=== PATIENT | male | born 1995 | race Caucasian/White ===

== ENCOUNTER 2017-09-15 22:31 | Emergency (ER) | payer BC, MEDICAID ==
[2017-09-15] MEDS: KETOROLAC 60 MG/2 ML VIAL IVP STA (23:52)
[2017-09-15] MEDS: HYDROmorphone 1 MG/ML SYRINGE IVP STA (23:53)
[2017-09-15] MEDS: LORazepam 2 MG/ML VIAL IVP STA (23:56)
--- NOTE | 2017-09-16 00:07 | XRAY Preliminary Report ---
Exam: XR HIP W/PELVIS 2-3V RT IMPRESSION: 1. No fracture or malalignment. 2. Possible of a coverage of both femoral heads with decreased offset of femoral head and neck. 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 Confirmatory studies can be performed with MRI. [facility] SITE ID: [id number]
--- NOTE | 2017-09-16 00:15 | XRAY Report ---
EXAM: RIGHT HIP AND PELVIS RADIOGRAPHY EXAM DATE: 09/15/2017 11:52 PM. HISTORY: Onset right hip pain this evening, severe. COMPARISONS: None. TECHNIQUE: 1 view of the pelvis and 1 view of the hip. FINDINGS: Bones: No fracture. Decreased offset of the femoral head and neck region bilaterally best seen on the right. Joints: Possible over coverage in both hip joints. No dislocation or significant joint space narrowin g. Soft Tissues: Normal. No soft tissue swelling. IMPRESSION: 1. No fracture or malalignment. 2. Possible over coverage of both femoral heads with decreased offset of femoral head and neck. 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 Confirmatory studies can be performed with MRI. [facility] Referring Provider Line: [phone] SITE ID: [id number]
[2017-09-16] MEDS: SODIUM CHLORIDE 0.9% 1,000 ML IV ONE (01:03)
[2017-09-16] MEDS: HYDROcod/ACET 5/325 Prepack 6 PO STA (01:05)
--- NOTE | 2017-09-16 01:51 | ED Physician Documentation ---
PD HPI LOWER EXT INJURY - Stated complaint Stated Complaint: HIP PX - Chief complaint Chief Complaint: General - History obtained from History obtained from: Patient - History of Present Illness PD HPI LOW EXT INJURY LOCATION: Right, Hip Type of injury: Twist (he reached down to pick out hand carseat and had abrupt onset right hip pain. Had had some pain there intermittently for few days or so. This was abrupt marked apin and felt unable to straighten his hip. He says it felt tight, like it "needed to pop" and felt that it was not in the right place. No fall nor impact.) Where injury occurred: Home Timing - onset: Today Timing - details: Abrupt onset, Still present Worsened by: Moving, Palpating Associated symptoms: No: Weakness, Numbness, Swelling Similar symptoms before: Has not had sx before Recently seen: Not recently seen Review of Systems Constitutional: denies: Fever, Chills Skin: denies: Rash, Lesions Musculoskeletal: denies: Back pain Neurologic: denies: Focal weakness, Numbness PD PAST MEDICAL HISTORY - Past Medical History Past Medical History: Yes Cardiovascular: None Neuro: None Endocrine/Autoimmune: Type 1 diabetes GI: None : None HEENT: None Psych: None Musculoskeletal: Chronic back pain Derm: None - Past Surgical History Past Surgical History: Yes General: Other - Present Medications Home Medications: Ambulatory Orders Medication Instructions Recorded Confirmed HYDROcod/ACETAM 5/325 [[place] 5/325] 1 tab PO Q6H PRN #15 tablet 09/16/17 Ibuprofen [Motrin] 600 mg PO TID #30 tab 09/16/17 - Allergies Allergies/Adverse Reactions: Allergies Allergy/AdvReac Type Severity Reaction Status Date / Time No Known Drug Allergies Allergy Verified 09/15/17 22:39 - Social History Does the pt smoke?: No Smoking Status: Never smoker Does the pt drink ETOH?: No Does the pt have substance abuse?: No - Immunizations Immunizations are current?: Yes - POLST Patient has POLST: No PD ED PE NORMAL - Vitals Vital signs reviewed: Yes - General General: Alert and oriented X 3, Well developed/nourished, Other (singificant pain, increased with any ROM. Holding joint stiffly. ) - Neck Neck: Supple, no meningeal sign, No adenopathy - Cardiac Cardiac: RRR, No murmur - Respiratory Respiratory: Clear bilaterally - Abdomen Abdomen: Normal bowel sounds, Soft, Non tender, Non distended - Back Back: No CVA TTP, No spinal TTP - Derm Derm: Normal color, Warm and dry, No rash - Extremities Extremities: Other (tender lateral and anterior hip. guarded ROM. With him having iV pain meds, I did passive ROM and guarded at first, then got a little looser. No noted clock nor pop, no noted laxity. ) - Neuro Neuro: Alert and oriented X 3, No motor deficit, No sensory deficit, Normal speech Results - Vitals Vitals: Vital Signs - 24 hr 09/15/17 09/16/17 09/16/17 22:36 00:40 01:59 Temperature 36.8 C Heart Rate 81 68 69 Respiratory 18 16 16 Rate Blood Pressure 144/60 H 102/54 L 100/63 O2 Saturation 100 98 98 Oxygen O2 Source Room air PD MEDICAL DECISION MAKING - ED course Complexity details: reviewed results (no fracture nor dislocation. The spacing is tight on both sides suggesting congenital process. Consider MRI per Rad. ), considered differential (given the degree of pain and the feeling of it " needing to pop" and hurting ROM, I would consider labral injury or such. Does not seem like just muscular but could be spasm. He is doing better after meds. Had transient drop in BP after pain meds, improved with IV fluids. ), d/w patient Departure - Departure Disposition: 01 Home, Self Care Clinical Impression: Hip strain Qualifiers: Encounter type: initial encounter Laterality: right Qualified Code(s): S76.011A - Strain of muscle, fascia and tendon of right hip, initial encounter Labral tear of hip joint Qualifiers: Encounter type: initial encounter Laterality: right Qualified Code(s): S73.191A - Other sprain of right hip, initial encounter Condition: Stable Record reviewed to determine appropriate education?: Yes Instructions: ED Sprain Hip Follow-Up: Taina Duenas MD [Primary Care Provider] - Gino Bah MD [Provider Admit Priv/Credential] - Prescriptions: HYDROcod/ACETAM 5/325 [[place] 5/325] 1 tab PO Q6H PRN #15 tablet PRN Reason: Pain Ibuprofen [Motrin] 600 mg PO TID #30 tab Comments: This may be a strain of some of the joint capsule of the hip. However given your symptoms, I would be concern for a injury of the cartilage within the hip, called the labrum. Use crutches to be off the leg and hip. Use ibuprofen 3 times a day and add hydrocodone if needed for pain. Follow-up with orthopedics early this coming week, call Monday for an appointment. Discharge Date/Time: 09/16/17 02:03
[2017-09-16 02:03] VITALS: BP 100/63
== END 2017-09-16 02:03 | disposition home or self-care (01) ==
LOC: ED 22:31
DX: S73.191A Other sprain of right hip, initial encounter (principal); S76.001A Unspecified injury of muscle, fascia and tendon of right hip, initial encounter; X50.9XXA Other and unspecified overexertion or strenuous movements or postures, initial encounter; Y93.89 Activity, other specified; Y92.009 Unspecified place in unspecified non-institutional (private) residence as the place of occurrence of the external cause; E10.9 Type 1 diabetes mellitus without complications
CPT/HCPCS: 96374; 96375; 99283

== ENCOUNTER 2018-04-15 12:48 | Emergency (ER) | payer SELFPAY ==
--- NOTE | 2018-04-15 14:21 | ED Physician Documentation ---
PD HPI BACK PAIN - Stated complaint Stated Complaint: R LEG PX - Chief complaint Chief Complaint: Back Pain - History obtained from History obtained from: Patient - History of Present Illness Timing - onset: How many days ago (few) Timing - duration: Days (few) Timing - details: Gradual onset, Still present (worsening over several days, without numbness nor weakness of legs. Feels pain goes down right posterior leg. No incontinence.) Location: Lower, Right Quality: Pain, Similar to prior episodes Associated symptoms: No: Fever, Weakness, Numbness Review of Systems Constitutional: denies: Fever, Chills, Myalgias Eyes: denies: Decreased vision, Reviewed and negative GI: denies: Abdominal Pain, Nausea, Vomiting, Diarrhea : denies: Dysuria, Frequency, Hesitancy, Unable to Void Skin: denies: Rash, Lesions Neurologic: denies: Focal weakness, Numbness PD PAST MEDICAL HISTORY - Past Medical History Cardiovascular: None Respiratory: None Neuro: None Endocrine/Autoimmune: Type 1 diabetes GI: None : None HEENT: None Psych: None Musculoskeletal: Chronic back pain Derm: None - Past Surgical History Past Surgical History: Yes General: Other - Present Medications Home Medications: Ambulatory Orders Medication Instructions Recorded Confirmed Ibuprofen [Motrin] 600 mg PO TID #30 tab 09/16/17 Dexamethasone [Decadron] 4 mg PO DAILY #5 tablet 04/15/18 HYDROcod/ACETAM 5/325 [[place] 5/325] 1 tab PO Q6H PRN #15 tablet 04/15/18 Methocarbamol [Robaxin] 500 mg PO Q6H PRN #25 tablet 04/15/18 - Allergies Allergies/Adverse Reactions: Allergies Allergy/AdvReac Type Severity Reaction Status Date / Time No Known Drug Allergies Allergy Verified 04/15/18 13:00 - Social History Does the pt smoke?: No Smoking Status: Never smoker Does the pt drink ETOH?: No Does the pt have substance abuse?: No - Immunizations Immunizations are current?: Yes - POLST Patient has POLST: No PD ED PE NORMAL - Vitals Vital signs reviewed: Yes - General General: Alert and oriented X 3, Well developed/nourished, Other (seems guarded on ROM of the low back, mainly right low back.) - Neck Neck: Supple, no meningeal sign, No adenopathy - Cardiac Cardiac: RRR, No murmur - Respiratory Respiratory: Clear bilaterally - Abdomen Abdomen: Soft, Non tender - Male Male : Deferred - Rectal Rectal: Deferred - Back Back: No spinal TTP - Derm Derm: Normal color, Warm and dry, No rash - Extremities Extremities: No tenderness to palpate, Normal ROM s pain, No edema, No calf tenderness / cord - Neuro Neuro: Alert and oriented X 3, No motor deficit, No sensory deficit, Normal speech Results - Vitals Vitals: Vital Signs - 24 hr 04/15/18 04/15/18 12:58 15:28 Temperature 36.6 C 36.6 C Heart Rate 82 67 Respiratory 20 18 Rate Blood Pressure 133/65 H 148/62 H O2 Saturation 100 98 Oxygen O2 Source Room air PD MEDICAL DECISION MAKING - ED course Complexity details: re-evaluated patient (no red flags noted on encounter. ), considered differential (he is tender at right SI joint more than low back. I did trigger injection with Kenalog and Marcaine at point of most tenderness.), d /w patient - Sepsis Event Vital Signs: Vital Signs - 24 hr 04/15/18 04/15/18 12:58 15:28 Temperature 36.6 C 36.6 C Heart Rate 82 67 Respiratory 20 18 Rate Blood Pressure 133/65 H 148/62 H O2 Saturation 100 98 Oxygen O2 Source Room air Departure - Departure Disposition: 01 Home, Self Care Clinical Impression: Low back pain Qualifiers: Chronicity: acute Back pain laterality: right Sciatica presence: with sciatica Sciatica laterality: sciatica of right side Qualified Code(s): M54.41 - Lumbago with sciatica, right side Condition: Stable Record reviewed to determine appropriate education?: Yes Instructions: ED Sciatica Prescriptions: Dexamethasone [Decadron] 4 mg PO DAILY #5 tablet HYDROcod/ACETAM 5/325 [[place] 5/325] 1 tab PO Q6H PRN #15 tablet PRN Reason: Pain Methocarbamol [Robaxin] 500 mg PO Q6H PRN #25 tablet PRN Reason: Spasms Comments: Continue ibuprofen or naproxen 2-3 times a day. Heat in the mornings to help stretch out the low back. Use some ice on the area after work to reduce inflammation. Take a day or 2 off work if you need to to start the improvement. Add Robaxin muscle relaxant if needed for spasms and stiffness. Add Hydrocodone if needed for pain. Recheck if not improved over the next week. Discharge Date/Time: 04/15/18 15:36
[2018-04-15] MEDS ORDERED: TRIAMCINOLONE 40 MG/ML VIAL IM STA (14:48)
[2018-04-15] MEDS ORDERED: HYDROcod/ACETAM 5/325 MG TABLET PO STA (14:48)
[2018-04-15] MEDS ORDERED: METHOCARBAMOL 500 MG TABLET PO STA (14:48)
[2018-04-15 15:28] VITALS: BP 148/62
== END 2018-04-15 15:36 | disposition home or self-care (01) ==
LOC: ED 12:48
DX: M54.41 Lumbago with sciatica, right side (principal); E10.9 Type 1 diabetes mellitus without complications
CPT/HCPCS: 20552; 99283; A9270

== ENCOUNTER 2018-06-19 14:42 | Emergency (ER) | payer MEDICAID ==
[2018-06-19 14:54] VITALS: BP 136/73
--- NOTE | 2018-06-19 16:00 | ED Physician Documentation ---
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 He really does not want to modify his activities.) Review of Systems Constitutional: reports: Reviewed and negative Cardiac: reports: Reviewed and negative Respiratory: reports: Reviewed and negative PD PAST MEDICAL HISTORY - Past Medical History Cardiovascular: None Respiratory: None Neuro: None GI: None : None HEENT: None Psych: None Musculoskeletal: Chronic back pain Derm: None Other Past Medical History: sciatic, herniated disk, spinal stenosis. - Past Surgical History Past Surgical History: Yes General: Other - Present Medications Home Medications: Ambulatory Orders Medication Instructions Recorded Confirmed Aspirin [Germán] 500 mg PO 0800 06/19/18 06/19/18 Ibuprofen [Motrin] 800 mg PO Q8H PRN #30 tablet 06/19/18 - Allergies Allergies/Adverse Reactions: Allergies Allergy/AdvReac Type Severity Reaction Status Date / Time No Known Drug Allergies Allergy Verified 06/19/18 14:49 - Social History Does the pt smoke?: No Smoking Status: Never smoker Does the pt drink ETOH?: No Does the pt have substance abuse?: No - Immunizations Immunizations are current?: Yes - POLST Patient has POLST: No PD ED PE NORMAL - Vitals Vital signs reviewed: Yes - General General: Alert and oriented X 3, No acute distress - Extremities Extremities: Other (Right elbow is full range of motion with mild tenderness over the lateral epicondyle, no swelling or redness.) - Neuro Neuro: Alert and oriented X 3, Normal speech Results - Vitals Vitals: Vital Signs - 24 hr 06/19/18 14:47 Temperature 36.9 C Heart Rate 70 Respiratory 16 Rate Blood Pressure 136/73 H O2 Saturation 100 Oxygen O2 Source Room air Departure - Departure Disposition: 01 Home, Self Care Clinical Impression: Lateral epicondylitis of elbow Qualifiers: Laterality: right Qualified Code(s): M77.11 - Lateral epicondylitis, right elbow Condition: Good Record reviewed to determine appropriate education?: Yes Instructions: ED Epicondylitis Lateral Elbow Prescriptions: Ibuprofen [Motrin] 800 mg PO Q8H PRN #30 tablet PRN Reason: PAIN &/OR FEVER Comments: As discussed get a tennis elbow brace and use as directed. Try to decrease or modify your activities to prevent repetitive motion injuries. Follow-up with your doctor in a week.
== END 2018-06-19 16:07 | disposition home or self-care (01) ==
LOC: ED 14:42
DX: M77.11 Lateral epicondylitis, right elbow (principal)
CPT/HCPCS: 99282; 99283

== ENCOUNTER 2018-07-16 15:37 | Emergency (ER) | payer MEDICAID ==
[2018-07-16 15:48] VITALS: BP 140/68
--- NOTE | 2018-07-16 16:33 | ED Physician Documentation ---
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 Worse with movement, better with rest. Took Aleve x1 without relief. No new mattresses. No recent travel. No fevers. No numbness or tingling. No loss of bowel or bladder control Review of Systems Constitutional: denies: Fever, Chills Ears: denies: Ear pain Nose: denies: Rhinorrhea / runny nose, Congestion Cardiac: denies: Chest pain / pressure Respiratory: denies: Cough, Wheezing GI: denies: Abdominal Pain, Nausea, Vomiting, Diarrhea Skin: denies: Rash Musculoskeletal: denies: Back pain Neurologic: denies: Focal weakness, Numbness, Headache PD PAST MEDICAL HISTORY - Past Medical History Cardiovascular: None Respiratory: None Neuro: None Endocrine/Autoimmune: None GI: None : None HEENT: None Psych: None Musculoskeletal: Chronic back pain Derm: None - Past Surgical History Past Surgical History: Yes General: Other - Present Medications Home Medications: Ambulatory Orders Medication Instructions Recorded Confirmed Aspirin [Germán] 500 mg PO 0800 06/19/18 06/19/18 Ibuprofen [Motrin] 800 mg PO Q8H PRN #30 tablet 06/19/18 Cyclobenzaprine [Flexeril] 10 mg PO TID PRN #20 tablet 07/16/18 Meloxicam [Mobic] 15 mg PO DAILY PRN #20 tablet 07/16/18 - Allergies Allergies/Adverse Reactions: Allergies Allergy/AdvReac Type Severity Reaction Status Date / Time No Known Drug Allergies Allergy Verified 07/16/18 15:48 - Social History Does the pt smoke?: No Smoking Status: Never smoker Does the pt drink ETOH?: No Does the pt have substance abuse?: No - Immunizations Immunizations are current?: Yes - POLST Patient has POLST: No PD ED PE NORMAL - Vitals Vital signs reviewed: Yes - General General: Alert and oriented X 3, No acute distress - HEENT HEENT: Moist mucous membranes - Neck Neck: Supple, no meningeal sign, No bony TTP (No midline tenderness to palpation. No step-off or deformity. 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 No evidence of meningitis. No evidence of cervical spine injury. We will continue supportive care and follow-up with his doctor. Patient counseled regarding signs and symptoms for which I believe and urgent re-evaluation would be necessary. Patient with good understanding of and agreement to plan and is comfortable going home at this time This document was made in part using voice recognition software. While efforts are made to proofread this document, sound alike and grammatical errors may occur. Departure - Departure Disposition: 01 Home, Self Care Clinical Impression: Neck muscle strain Qualifiers: Encounter type: initial encounter Qualified Code(s): S16.1XXA - Strain of muscle, fascia and tendon at neck level, initial encounter Condition: Good Instructions: ED Spasm Neck No Injury Follow-Up: your,doctor in 1 week [Other] Prescriptions: Cyclobenzaprine [Flexeril] 10 mg PO TID PRN #20 tablet PRN Reason: Spasms Meloxicam [Mobic] 15 mg PO DAILY PRN #20 tablet PRN Reason: pain Comments: This should improve over the next few days. Return if you worsen. Follow-up with your doctor for further care. Do not drive or operate heavy machinery while taking the Flexeril. Discharge Date/Time: 07/16/18 16:39
== END 2018-07-16 16:39 | disposition home or self-care (01) ==
LOC: ED 15:37
DX: S16.1XXA Strain of muscle, fascia and tendon at neck level, initial encounter (principal)
CPT/HCPCS: 99283

== ENCOUNTER 2023-08-14 14:37 | Emergency (ER) | payer MEDICAID, OTHER ==
[2023-08-14] MEDS ORDERED: diazePAM 5 MG TABLET PO STA (15:44)
[2023-08-14] MEDS ORDERED: oxyCODONE 5 MG TABLET PO STA (15:44)
[2023-08-14] MEDS ORDERED: MORPHINE 2 MG/ML CARPUJECT IM STA (16:36)
[2023-08-14] MEDS ORDERED: oxyCODONE/ACET 5/325 Prepack 4 PO STA (17:01)
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
[2023-08-14 17:39] VITALS: BP 149/72; O2SAT 97
== END 2023-08-14 17:35 | disposition home or self-care (01) ==
LOC: ED 14:37
DX: M54.50 Low back pain, unspecified (principal)
CPT/HCPCS: 96372; 99283; A9270

== ENCOUNTER 2024-04-25 20:22 | Emergency (ER) | payer SELFPAY ==
[2024-04-25 20:48] VITALS: BP 127/84; O2SAT 99
[2024-04-25 21:00] LABS: RAPID STREP SCREEN Negative (Negative)
[2024-04-25] MEDS: SODIUM CHLORIDE 0.9% 1,000 ML IV ONE (21:40)
[2024-04-25 21:48] LABS: B. PARAPERTUSSIS- RESP PCR PAN NOT DETECTED; B. PERTUSSIS- RESP PCR PANEL NOT DETECTED; C. PNEUMONIAE- RESP PCR PANEL NOT DETECTED; CORONAVIRUS 229E-RESP PCR NOT DETECTED; CORONAVIRUS HKU1-RESP PCR NOT DETECTED; CORONAVIRUS NL63-RESP PCR NOT DETECTED; CORONAVIRUS OC43-RESP PCR NOT DETECTED; HUMAN METAPNEUMOVIRUS NOT DETECTED; INFLUENZA A- RESP PCR PANEL NOT DETECTED; INFLUENZA B - RESP PCR PANEL NOT DETECTED; M. PNEUMONIAE- RESP PCR PANEL NOT DETECTED; PARAINFLUENZA VIRUS 1 NOT DETECTED; PARAINFLUENZA VIRUS 2 NOT DETECTED; PARAINFLUENZA VIRUS 3 NOT DETECTED; PARAINFLUENZA VIRUS 4 NOT DETECTED; RHINOVIRUS/ENTEROVIRUS DETECTED; RSV- RESP PCR PANEL NOT DETECTED; SARS-CoV-2 -RESP PCR PANEL NOT DETECTED
[2024-04-25] MEDS: IBUPROFEN 600 MG TABLET PO STA ×2 (22:34→22:35)
--- NOTE | 2024-04-25 22:53 | ED Physician Documentation ---
History of Present Illness - Stated complaint Stated Complaint: FEVER/DIZZY - Chief complaint Chief Complaint: Fever - History obtained from History obtained from: Patient, Family (mom) - Additonal information Additional information: 28-year-old man presents to the emergency department with viral URI symptoms for the past couple of days. He had a forehead thermometer temperature of 104 at home. Denies nausea vomiting diarrhea abdominal pain chest pain or shortness of breath. He does have a headache and some sinus congestion. PD PAST MEDICAL HISTORY - Past Medical History Past Medical History: Yes Cardiovascular: None Respiratory: None Neuro: None Endocrine/Autoimmune: None GI: None : None HEENT: None Psych: None Musculoskeletal: Chronic back pain Derm: None - Past Surgical History Past Surgical History: Yes General: Other - Present Medications Home Medications: Ambulatory Orders Medication Instructions Recorded Confirmed Meloxicam [Mobic] 15 mg PO DAILY PRN #20 tablet 07/16/18 Acetaminophen [Tylenol] 650 mg PO Q6H PRN #30 tab 08/14/23 04/25/24 - Allergies Allergies/Adverse Reactions: Allergies Allergy/AdvReac Type Severity Reaction Status Date / Time No Known Drug Allergies Allergy Verified 04/25/24 20:36 - Social History Does the pt smoke?: No Smoking Status: Never smoker Does the pt drink ETOH?: No Does the pt have substance abuse?: No - Immunizations Immunizations are current?: Yes - POLST Patient has POLST: No PD ED PE NORMAL - Vitals Vital signs reviewed: Yes - General General: Alert and oriented X 3, No acute distress, Well developed/nourished - HEENT HEENT: Atraumatic, PERRL, EOMI - Neck Neck: Supple, no meningeal sign - Cardiac Cardiac: RRR - Respiratory Respiratory: No respiratory distress, Clear bilaterally - Abdomen Abdomen: Non tender, Non distended Results - Vitals Vitals: Vital Signs - 24 hr 04/25/24 20:27 Temperature 37.9 C Heart Rate 112 H Respiratory 17 Rate Blood Pressure 127/84 H O2 Saturation 99 Oxygen O2 Source Room air - Labs Labs: Laboratory Tests 04/25/24 04/25/24 20:28 20:28 Nasal Adenovirus (PCR) NOT DETECTED Nasal B. parapertussis DNA (PCR) NOT DETECTED Nasal Coronavir 229E PCR NOT DETECTED Nasal Coronavir HKU1 PCR NOT DETECTED Nasal Coronavir NL63 PCR NOT DETECTED Nasal Coronavir OC43 PCR NOT DETECTED Nasal Enterovir/Rhinovir PCR DETECTED A Nasal Influenza B PCR NOT DETECTED Nasal Influenza A PCR NOT DETECTED Nasal Parainfluen 1 PCR NOT DETECTED Nasal Parainfluen 2 PCR NOT DETECTED Nasal Parainfluen 3 PCR NOT DETECTED Nasal Parainfluen 4 PCR NOT DETECTED Nasal RSV (PCR) NOT DETECTED Nasal B.pertussis DNA PCR NOT DETECTED Nasal C.pneumoniae (PCR) NOT DETECTED Fred Human Metapneumo PCR NOT DETECTED Nasal M.pneumoniae (PCR) NOT DETECTED Nasal SARS-CoV-2 (PCR) NOT DETECTED Group A Strep Rapid Negative PD Medical Decision Making - ED course ED course: 28-year-old man presents with viral URI symptoms for the past couple of days, found to have rhinovirus/enterovirus. Symptomatic care discussed. Return precautions given. Departure - Departure Disposition: 01 Home, Self Care Clinical Impression: Common cold virus Condition: Stable Instructions: ED Viral Syndrome Comments: You were seen in the emergency department for A common cold virus called rhinovirus. You can use oxymetazoline or phenylephrine containing nasal sprays twice daily to relieve sinus congestion. Take Tylenol and Motrin [id number] for pain or headache. Please follow-up with your primary care provider routinely and return to the emergency department if you have any new or worsening symptoms or other concerns.
== END 2024-04-25 22:58 | disposition home or self-care (01) ==
LOC: ED 20:22
DX: B34.8 Other viral infections of unspecified site (principal); B34.1 Enterovirus infection, unspecified; Z20.822 Contact with and (suspected) exposure to COVID-19
CPT/HCPCS: 87070; 87430; 87633; 99283; A9270